=== PATIENT | male | born 1995 | race Caucasian/White ===

== ENCOUNTER 2023-11-23 09:15 | Emergency (ER) | payer OTHER ==
[~2023-11-23] VITALS: Ht 170.2 cm; Wt 117.1 kg
[2023-11-23 09:15] VITALS: BP 134/78; TEMP 97.3; O2SAT 98
[2023-11-23] MEDS: NS 1,000 ML IV ONE (11:20)
[2023-11-23] MEDS: ONDANSETRON 4MG 2ML VIAL IV ONE (11:20)
[2023-11-23] MEDS ORDERED: ISOVUE-370 76% 100ML VIAL As Ordered ONE (11:24)
[2023-11-23 11:25] LABS: BASO % 0.4 % (0.0-1.0); EOS # 0.1 10^3/uL (0.0-0.5); HEMATOCRIT 44.5 % (42.0-52.0); HEMOGLOBIN 14.8 g/dl (13.5-17.5); LYMPH # 2.3 10^3/uL (1.5-5.0); LYMPH % 27.4 % (24.0-44.0); MEAN CORPUSCULAR HEMOGLOBIN 28.7 pg (27.0-33.0); MEAN CORPUSCULAR HGB CONC 33.3 g/dl (32.0-36.5); MEAN CORPUSCULAR VOLUME 86.2 fl (80.0-96.0); MONO # 0.6 10^3/uL (0.0-0.8); MONO % 7.2 % (2.0-8.0); NEUTROPHILS # 5.3 10^3/uL (1.5-8.5); NEUTROPHILS % 63.6 % (36.0-66.0); PLATELET COUNT, AUTOMATED 214 10^3/uL (150-450); RED BLOOD COUNT 5.16 10^6/uL (4.30-6.10); WHITE BLOOD COUNT 8.3 10^3/uL (4.0-10.0)
[2023-11-23 12:01] LABS: ALBUMIN 3.9 G/DL (3.2-5.2); BILIRUBIN,DIRECT 0.1 MG/DL (<0.4); BILIRUBIN,TOTAL 0.6 MG/DL (0.3-1.2); TOTAL PROTEIN 6.6 G/DL (5.7-8.2)
[2023-11-23] MEDS ORDERED: KETO10TAB PO (13:14)
[2023-11-23] MEDS ORDERED: DULC10SU2 PR (13:14)
[2023-11-23] MEDS ORDERED: AMOX875T2 PO (13:14)
[2023-11-23] MEDS: AUGMENTIN 875 MG TAB PO ONE (13:15)
[2023-11-23] MEDS: KETOROLAC 30 MG/ML 1ML VIAL IV ONE (13:15)
== END 2023-11-23 13:20 | disposition home or self-care (01) ==
LOC: M ED 09:15
DX: R10.31 Right lower quadrant pain (principal)
CPT/HCPCS: 74177; 80047; 80076; 81001; 83690; 85025; 86850; 86900; 86901; 96361; 96374; 96375; 99283; J1885; J2405; Q9967

== ENCOUNTER → 2024-07-16 | Outpatient (CLI) | payer OTHER ==
[~2024-07-16] MED LIST: AMOX875T2 PO; DULC10SU2 PR; KETO10TAB PO
[2024-07-16 10:03] LABS: BASO % 0.3 % (0.0-1.0); EOS # 0.1 10^3/uL (0.0-0.5); EOS % 1.5 % (0.0-3.0); HEMATOCRIT 46.4 % (42.0-52.0); HEMOGLOBIN 15.3 g/dl (13.5-17.5); LYMPH # 2.2 10^3/uL (1.5-5.0); LYMPH % 31.3 % (24.0-44.0); MEAN CORPUSCULAR HEMOGLOBIN 28.4 pg (27.0-33.0); MEAN CORPUSCULAR VOLUME 86.1 fl (80.0-96.0); MONO # 0.5 10^3/uL (0.0-0.8); MONO % 6.4 % (2.0-8.0); NEUTROPHILS # 4.3 10^3/uL (1.5-8.5); NEUTROPHILS % 59.8 % (36.0-66.0); PLATELET COUNT, AUTOMATED 227 10^3/uL (150-450); RED BLOOD COUNT 5.39 10^6/uL (4.30-6.10); WHITE BLOOD COUNT 7.2 10^3/uL (4.0-10.0)
[2024-07-16 10:30] LABS: ALBUMIN 3.7 G/DL (3.2-5.2); ALKALINE PHOSPHATASE 110 U/L (40-129); ALT/SGPT 77 U/L (7.0-40); AST/SGOT 26 U/L (<34); BILIRUBIN,TOTAL 0.5 MG/DL (0.3-1.2); BLOOD UREA NITROGEN 25 MG/DL (9-23); CALCIUM LEVEL 9.2 MG/DL (8.5-10.1); CARBON DIOXIDE LEVEL 29 MMOL/L (20-31); CHLORIDE LEVEL 106 MMOL/L (98-107); CHOLESTEROL LEVEL 198 MG/DL (<200); CHOLESTEROL RISK RATIO 6.42 (<5); CREATININE FOR GFR 1.14 MG/DL (0.70-1.30); GLOMERULAR FILTRATION RATE > 60.0 (>60); GLUCOSE, FASTING 92 MG/DL (60-100); HDL CHOLESTEROL 30.8 MG/DL (>40); LDL CHOLESTEROL 145.4 MG/DL (<100); NON-HDL-C 167.2 MG/DL; POTASSIUM SERUM 4.4 MMOL/L (3.5-5.1); SODIUM LEVEL 143 MMOL/L (136-145); TOTAL PROTEIN 6.7 G/DL (5.7-8.2); TRIGLYCERIDES LEVEL 109 MG/DL (<150)
[2024-07-16 10:35] LABS: FREE T4 1.01 NG/DL (0.89-1.76); THYROID STIMULATING HORMONE 1.163 uIU/ML (0.55-4.78)
[2024-07-16 10:53] LABS: HEPATITIS B SURFACE ANTIGEN NEGATIVE (NEGATIVE)
[2024-07-16 11:03] LABS: HEMOGLOBIN A1c 5.2 % (4.0-6.0)
[2024-07-16 11:06] LABS: HIV 1&2 SCREEN NEGATIVE (NEGATIVE)
[2024-07-16 11:12] LABS: HEPATITIS C VIRUS ABY INDEX 0.05 INDEX (<0.8)
[2024-07-16 11:13] LABS: HEPATITIS B CORE ANTIBODY IGM NEGATIVE (NEGATIVE)
== END ==
LOC: M LAB 09:27
PROVIDERS: ATTEND Registered Nurse
DX: Z00.00 Encounter for general adult medical examination without abnormal findings (principal); Z11.3 Encounter for screening for infections with a predominantly sexual mode of transmission